=== PATIENT | male | born 1990 | race Caucasian/White ===

== ENCOUNTER 2016-08-13 01:08 | Emergency (ER) | payer OTHER ==
[2016-08-13 02:10] VITALS: BP 141/78
== END 2016-08-13 02:10 | disposition other institution (70) ==
LOC: ED 01:08
DX: R07.89 Other chest pain (principal); V43.92XA Unspecified car occupant injured in collision with other type car in traffic accident, initial encounter; Y93.89 Activity, other specified; Y92.89 Other specified places as the place of occurrence of the external cause; Y99.8 Other external cause status
CPT/HCPCS: Q0092

== ENCOUNTER 2016-08-13 01:08 | Emergency (ER) | payer OTHER | END 2016-08-13 02:10 | disposition other institution (70) | LOC: ED 01:08 | DX: Z02.89 Encounter for other administrative examinations (principal); R07.89 Other chest pain; V49.59XA Passenger injured in collision with other motor vehicles in traffic accident, initial encounter; W22.19XA Striking against or struck by other automobile airbag, initial encounter; Y93.89 Activity, other specified; Y99.8 Other external cause status; Y92.89 Other specified places as the place of occurrence of the external cause ==

== ENCOUNTER 2019-02-28 20:22 | Emergency (ER) | payer SELFPAY ==
[~2019-02-28] VITALS: Ht 177.8 cm; Wt 94.8 kg
[2019-02-28 20:54] VITALS: BP 146/89; Ht 177.8 cm; Wt 94.8 kg
== END 2019-02-28 21:26 | disposition home or self-care (01) ==
LOC: ED 20:22
DX: K02.9 Dental caries, unspecified (principal)

== ENCOUNTER 2020-04-15 00:23 | Emergency (ER) | payer SELFPAY ==
[~2020-04-15] VITALS: Ht 177.8 cm; Wt 88.5 kg
[2020-04-15 00:24] VITALS: Ht 177.8 cm; Wt 88.5 kg
[2020-04-15 01:56] LABS: BASOPHIL % 0.8 % (0.2-1.5); PLATELET COUNT 256 x10^3mcL (152-348); RED CELL DISTRIBUTION WIDTH 12.2 % (12.1-16.2)
[2020-04-15 02:00] LABS: rbc morphology (normal/abnorm) NORMAL (NORMAL)
[2020-04-15 02:31] LABS: CARBON DIOXIDE 27.5 mmol/L (21-32); CHLORIDE SERUM 99 mmol/L (98-107); GFR1 > 60 mL/min; GLUCOSE SERUM 98 mg/dL (74-106); POTASSIUM SERUM 3.1 mmol/L (3.5-5.1); SODIUM SERUM 138 mmol/L (136-145)
[2020-04-15 02:36] LABS: ALBUMIN 4.4 g/dL (3.4-5.0); ALKALINE PHOSPHATASE 95 U/L (46-116); ALT/SGPT 167 U/L (16-63); AST/SGOT 77 U/L (15-37); BILIRUBIN TOTAL 1.29 mg/dL (0.20-1.00); LIPASE 87 IU/L (73-393)
[2020-04-15] MEDS ORDERED: ONDANSETRON4 M3 PO (03:29)
[2020-04-15 03:49] VITALS: BP 128/80
== END 2020-04-15 03:49 | disposition home or self-care (01) ==
LOC: ED 00:23
PROVIDERS: Emergency Medicine
DX: E86.0 Dehydration (principal); E87.6 Hypokalemia; R11.2 Nausea with vomiting, unspecified; Z20.822 Contact with and (suspected) exposure to COVID-19
CPT/HCPCS: J2060; J2405